=== PATIENT | female | born 1995 | race Caucasian/White ===

== ENCOUNTER 2021-08-25 17:25 | Emergency (ER) | payer SELFPAY ==
--- NOTE | 2021-08-25 18:35 | ER ---
Nurse's Notes [facility] Name: Elizabeth Gutierrez Age: 26 yrs Sex: Female : 1995 Arrival Date: 08/25/2021 Time: 17:27 Bed 16 Private MD: Diagnosis: Cutaneous abscess of face;Acute lymphadenitis of face, head and neck;Cellulitis of face Presentation: 08/25 17:39 Chief complaint: Patient states: Abscess under chin, has a wound on chin that [address] said was unrelated. Coronavirus screen: Vaccine status: Patient reports being unvaccinated. Ebola Screen: Patient negative for fever greater than or equal to 101.5 degrees Fahrenheit, and additional compatible Ebola Virus Disease symptoms Patient denies exposure to infectious person. No symptoms or risks identified at this time. Initial Sepsis Screen: Does the patient meet any 2 criteria? No. Patient's initial sepsis screen is negative. Does the patient have a suspected source of infection? No. Patient's initial sepsis screen is negative. Risk Assessment: Do you want to hurt yourself or someone else? Patient reports no desire to harm self or others. Onset of symptoms was August 22, 2021. 17:39 Method Of Arrival: Ambulatory [facility] 17:39 Acuity: MAGEN 3 5 Triage Assessment: 17:44 General: Appears Behavior is cooperative. Pain: Complains of pain in neck. 5 Historical: - Allergies: 17:44 No Known Allergies; ch5 - Home Meds: 17:44 levothyroxine oral [Active]; ch5 - PMHx: 17:44 Hyperthyroidism; ch5 - PSHx: 17:44 tubes in ears; ch5 - Social history:: Smoking status: Patient reports the use of cigarette tobacco products, smokes one pack cigarettes per day. Patient uses Patient/guardian denies using alcohol, street drugs. Screenin:46 Abuse screen: Denies threats or abuse. Denies injuries from another. Nutritional 5 screening: No deficits noted. Tuberculosis screening: No symptoms or risk factors identified. Fall Risk None identified. Assessment: 17:55 General: Appears comfortable, Behavior is calm, cooperative, appropriate for age, oh Reports swollen lymph nodes under chin. EENT: swollen lymph nodes under chin are, palpable . Vital Signs: 17:39 BP 159 / 108; Pulse 65; Resp 22; Temp 98; Pulse Ox 100% on R/A; Weight 74.39 kg; Height ch5 5 ft. 4 in. (162.56 cm); Pain 7/10; 18:48 BP 147 / 102; Pulse 77; Resp 17; Pulse Ox 100% on R/A; oh 17:39 Body Mass Index 28.15 (74.39 kg, 162.56 cm) ch5 ED Course: 17:27 Patient arrived in ED. mr 17:36 Madan Looney PA is PHCP. jr8 17:36 Kishan Harrell MD is Attending Physician. jr8 17:44 Triage completed. ch5 17:46 Arm band placed on right wrist. ch5 17:46 Patient has correct armband on for positive identification. Bed in low position. Call [facility] light in reach. 17:46 No provider procedures requiring assistance completed. 5 17:48 Evon Emerson, RN is Primary Nurse. oh 18:47 Wound care: wound on chin cleaned and dressed. tc5 Administered Medications: 18:22 Drug: Lidocaine (1 %) 5 mg {Note: given by ARELY.} Route: Infiltration; oh Point of Care Testing: Urine : 18:03 hCG Reading: Negative; oh Outcome: 18:34 Discharge ordered by . jr8 18:48 Patient left the ED. tc5 Signatures: Jt Constance mr Madan Looney PA PA jr8 Grant Umana RN RN ch5 Evon Emerson, RN RN oh Marguerite Contreras RN RN tc5
--- NOTE | 2021-08-25 18:35 | EDPHYS ---
Physician Documentation [facility] Name: Elizabeth Gutierrez Age: 26 yrs Sex: Female : 1995 Arrival Date: 08/25/2021 Time: 17:27 Bed 16 Private MD: ED Physician Kishan Harrell HPI: 08/25 18:49 This 26 yrs old Female presents to ER via Ambulatory with complaints of jr8 Abscess. 18:49 Onset: The symptoms/episode began/occurred gradually, 3 day(s) ago. Possible cause(s): jr8 unknown. Associated signs and symptoms: The patient has no apparent associated signs or symptoms. Modifying factors: the symptoms are alleviated by nothing, the symptoms are aggravated by squeezing the lesion and expressing the contents, touching. Severity of symptoms: At their worst the symptoms were mild, in the emergency department the symptoms are unchanged. The patient has not experienced similar symptoms in the past. The patient has not recently seen a physician. Patient stated that for the past 3 days has had a small area to the chin. Since then has had mild increase in swelling around the region.. Historical: - Allergies: 17:44 No Known Allergies; ch5 - Home Meds: 17:44 levothyroxine oral [Active]; ch5 - PMHx: 17:44 Hyperthyroidism; ch5 - PSHx: 17:44 tubes in ears; ch5 - Social history:: Smoking status: Patient reports the use of cigarette tobacco products, smokes one pack cigarettes per day. Patient uses Patient/guardian denies using alcohol, street drugs. ROS: 18:49 Eyes: Negative for injury, pain, redness, and discharge, ENT: Negative for injury, jr8 pain, and discharge, Neck: Negative for injury, pain, and swelling, Cardiovascular: Negative for chest pain, palpitations, and edema, Respiratory: Negative for shortness of breath, cough, wheezing, and pleuritic chest pain, Abdomen/GI: Negative for abdominal pain, nausea, vomiting, diarrhea, and constipation, Back: Negative for injury and pain, MS/Extremity: Negative for injury and deformity, Neuro: Negative for headache, weakness, numbness, tingling, and seizure. 18:49 Skin: Positive for abscess, cellulitis, of the chin. Exam: 18:49 Constitutional: This is a well developed, well nourished patient who is awake, alert, jr8 and in no acute distress. Eyes: Pupils equal round and reactive to light, extra-ocular motions intact. Lids and lashes normal. Conjunctiva and sclera are non-icteric and not injected. Cornea within normal limits. Periorbital areas with no swelling, redness, or edema. ENT: Nares patent. No nasal discharge, no septal abnormalities noted. Tympanic membranes are normal and external auditory canals are clear. Oropharynx with no redness, swelling, or masses, exudates, or evidence of obstruction, uvula midline. Mucous membranes moist. Cardiovascular: Regular rate and rhythm with a normal S1 and S2. No gallops, murmurs, or rubs. Normal PMI, no JVD. No pulse deficits. Respiratory: Lungs have equal breath sounds bilaterally, clear to auscultation and percussion. No rales, rhonchi or wheezes noted. No increased work of breathing, no retractions or nasal flaring. Skin: Warm, dry with normal turgor. Normal color with no rashes MS/ Extremity: Pulses equal, no cyanosis. Neurovascular intact. Full, normal range of motion. Neuro: Awake and alert, GCS 15, oriented to person, place, time, and situation. Cranial nerves II-XII grossly intact. Motor strength 5/5 in all extremities. Sensory grossly intact. 18:49 Neck: Trachea midline, no thyromegaly or masses palpated, and no cervical lymphadenopathy. Supple, full range of motion without nuchal rigidity, or vertebral point tenderness. No Meningismus. 18:49 Head/face: Noted is Patient has small abscessed region to the chin with surrounding swelling and submental lymphadenopathy. No sublingual edema or swelling. Vital Signs: 17:39 BP 159 / 108; Pulse 65; Resp 22; Temp 98; Pulse Ox 100% on R/A; Weight 74.39 kg; Height ch5 5 ft. 4 in. (162.56 cm); Pain 7/10; 18:48 BP 147 / 102; Pulse 77; Resp 17; Pulse Ox 100% on R/A; oh 17:39 Body Mass Index 28.15 (74.39 kg, 162.56 cm) ch5 Procedures: 18:32 I \T\ D: Incision and drainage was performed for an abscess of the Submental Prepped with jr8 Betadine, Anesthetized with 2 ml's 1% Lidocaine. Incised with #11 blade. Drained small amount purulent fluid. bloody fluid. Dressing: sterile 4x4 gauze, the patient tolerated the procedure well. MDM: 17:47 Patient medically screened. vannesa 18:32 Data reviewed: vital signs, nurses notes, and as a result, I will discharge patient. jr8 Data interpreted: Pulse oximetry: on room air is 100 %. Interpretation: normal. Counseling: I had a detailed discussion with the patient and/or guardian regarding: the historical points, exam findings, and any diagnostic results supporting the discharge/admit diagnosis, the need for outpatient follow up, a family practitioner, to return to the emergency department if symptoms worsen or persist or if there are any questions or concerns that arise at home. ED course: Discussed with patient that she needs to watch the mild cellulitic region closely. Gave her signs and symptoms that would indicate worsening of condition including protrusion and/or swelling to the sublingual region or worsening of the swelling to the submental and submandibular region along with any signs and symptoms of difficulty swallowing or breathing. If those were to occur to immediately come back to the emergency room. Patient needs follow-up with the next 48 hours otherwise to recheck the wound. Patient will be on Bactrim as well for 10 days. Patient good with this and will follow up and/or come back immediately.. Administered Medications: 18:22 Drug: Lidocaine (1 %) 5 mg {Note: given by PA.} Route: Infiltration; oh Point of Care Testing: Urine : 18:03 hCG Reading: Negative; oh Disposition Summary: 08/25/21 18:34 Discharge Ordered Location: Home [facility] Problem: new jr8 Symptoms: have improved jr8 Condition: Stable jr8 Diagnosis - Cutaneous abscess of face jr8 - Acute lymphadenitis of face, head and neck jr8 - Cellulitis of face jr8 Followup: jr8 - With: Private Physician - When: 48 Hours - Reason: Wound Recheck, Recheck today's complaints, Continuance of care, Re-evaluation by your physician Discharge Instructions: - Discharge Summary Sheet jr8 - Cellulitis, Adult jr8 - Incision and Drainage jr8 - Lymphadenopathy jr8 Forms: - Medication Reconciliation Form jr8 - Thank You Letter jr8 - Antibiotic Education jr8 - Prescription Opioid Use jr8 Prescriptions: - Bactrim DS 800-160 mg Oral Tablet - take 1 tablet by ORAL route every 12 hours for 10 days; 20 tablet; Refills: 0, jr8 Product Selection Permitted Addendum: 08/27/2021 10:57 Co-signature as Attending Physician, Kishan Harrell MD I agree with the assessment and c alexis plan of care. Signatures: Kishan Harrell MD MD cha Roszak, Josh, PA PA jr8 Grant Umana, RN RN ch5 Evon Emerson RN RN oh
[2021-08-25] MEDS ORDERED: LIDOCAINE 1% 20 ML MDV ONE (18:44)
[2021-08-25 18:53] VITALS: BP 159/108; TEMP 98; O2SAT 100
== END 2021-08-25 18:48 | disposition home or self-care (01) ==
LOC: ER 17:25
PROC: 0J910ZZ Drainage of Face Subcutaneous Tissue and Fascia, Open Approach (ICD-10-PCS; principal; 2021-08-25)
DX: L03.211 Cellulitis of face (principal); L04.0 Acute lymphadenitis of face, head and neck; E03.9 Hypothyroidism, unspecified; F17.210 Nicotine dependence, cigarettes, uncomplicated
CPT/HCPCS: 99283